=== PATIENT | male | born 1990 | race African-American/Black ===

== ENCOUNTER 2017-05-19 11:24 | Emergency (ER) | payer MEDICAID ==
[~2017-05-19] VITALS: Ht 177.8 cm; Wt 109.0 kg
[2017-05-19 14:35] VITALS: BP 145/87
== END 2017-05-19 16:40 | disposition left against medical advice (07) ==
LOC: ER 12:45
DX: M25.511 Pain in right shoulder (principal)
CPT/HCPCS: 99281

== ENCOUNTER 2023-08-04 12:57 | Emergency (ER) | payer MEDICAID ==
[~2023-08-04] VITALS: Ht 188 cm; Wt 132.0 kg
[2023-08-04 13:03] VITALS: BP 164/103; RESP 18; TEMP 98.5; O2SAT 98
[2023-08-04 13:06] VITALS: PULSE 106
[2023-08-04] MEDS: KETOROLAC 15MG/ML VIAL IM ONE (13:45)
[2023-08-04] MEDS: FLUORESCEIN SODIUM 1MG/STRIP RIGHTEYE ONE (15:45)
[2023-08-04] MEDS ORDERED: LIDO700A15 TP (16:09)
[2023-08-04] MEDS ORDERED: HYDR-4001 MT (16:09)
[2023-08-04] MEDS ORDERED: NAPR-1176 MT (16:09)
== END 2023-08-04 16:31 | disposition home or self-care (01) ==
LOC: ER 12:57
DX: S42.251A Displaced fracture of greater tuberosity of right humerus, initial encounter for closed fracture (principal); S06.0X0A Concussion without loss of consciousness, initial encounter; V53.0XXA Driver of pick-up truck or van injured in collision with car, pick-up truck or van in nontraffic accident, initial encounter; Y93.89 Activity, other specified; Y92.89 Other specified places as the place of occurrence of the external cause; Y99.8 Other external cause status
CPT/HCPCS: 70486; 71045; 73030; 99284; A4565